=== PATIENT | male | born 1965 | race Caucasian/White ===

== ENCOUNTER → 2021-03-15 | Day surgery (SDC) | payer OTHER ==
[~2021-03-15] VITALS: Ht 170 cm; Wt 104.0 kg
[~2021-03-15] MED LIST: ALLEGRA ALLERG180 MG PO; ANTIVERT25 MG PO; ASPIRIN EC81 MG PO; CARDIZEM CD240 MG PO; CRESTOR40 M1 PO; CYMBALTA 30MG C30 MG PO; DAILY VALUE1 EACH PO; EFFIENT10 MG PO; FENOFIBRATE160 MG PO; FLONASE ALLER15.8 ML; LASIX20 MG PO; LOVAZA1 GM PO; MONTELUKAST SOD10 MG PO; NEXIUM 40MG CAP40 MG PO; NITROQUIK SL0.4 MG SL; PERCOCET 5-3251 EACH PO; SPIRIVA RESPIMAT4 G1 INH; VICODIN 10/3251 EACH PO; ZESTRIL5 M1 PO
[2021-03-15 08:04] LABS: HGB 13.8 g/dl (13.2-18.0); MCH 28.4 pg (25.0-31.0); MCHC 33.7 g/dL (32.0-36.0); MCV 84.4 fL (78.0-100.0); MPV 9.6 fL (6.0-9.5); RBC 4.86 M/uL (4.70-6.00); RDW 13.2 % (11.5-14.0); WBC 9.1 K/uL (4.0-10.5)
[2021-03-15 08:35] LABS: ALBUMIN 3.5 g/dL (3.4-5.0); BILIRUBIN - TOTAL 0.3 mg/dL (0.2-1.0); CREATININE 0.92 mg/dL (0.67-1.17); GLOBULIN (CALCULATION) 3.8 g/dL; POTASSIUM 3.9 mmol/L (3.5-5.1); TOTAL PROTEIN 7.3 g/dL (6.4-8.2)
== END | disposition home or self-care (01) ==
LOC: FAS 07:23
PROVIDERS: Orthopaedic Surgery
DX: M75.122 Complete rotator cuff tear or rupture of left shoulder, not specified as traumatic (principal); M75.42 Impingement syndrome of left shoulder; M19.012 Primary osteoarthritis, left shoulder; Z88.0 Allergy status to penicillin; Z88.6 Allergy status to analgesic agent; F41.9 Anxiety disorder, unspecified; K21.9 Gastro-esophageal reflux disease without esophagitis; Z96.643 Presence of artificial hip joint, bilateral; Z95.5 Presence of coronary angioplasty implant and graft; I10 Essential (primary) hypertension; I25.10 Atherosclerotic heart disease of native coronary artery without angina pectoris; J45.909 Unspecified asthma, uncomplicated; Z87.891 Personal history of nicotine dependence; M75.52 Bursitis of left shoulder; S46.212A Strain of muscle, fascia and tendon of other parts of biceps, left arm, initial encounter
CPT/HCPCS: 36415; 71045; 80053; 93005; C1713; J0171; J1100; J2250; J2405; J2704; J2795; J7120